=== PATIENT | male | born 1995 | race Caucasian/White ===

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

== ENCOUNTER 2021-02-03 00:03 | Emergency (ER) | payer BC ==
[~2021-02-03] VITALS: Ht 180.3 cm; Wt 63.6 kg
[~2021-02-03 00:03] MED LIST: TYLENOL W/COD1 UDTAB PO
[2021-02-03 00:08] VITALS: BP 131/90; TEMP 97.6
[2021-02-03] MEDS ORDERED: AMOXICILLIN 8751 TAB PO (01:12)
[2021-02-03 01:28] VITALS: PULSE 75
== END 2021-02-03 01:28 | disposition home or self-care (01) ==
LOC: COL.ER 00:03
DX: S00.33XA Contusion of nose, initial encounter (principal); J34.89 Other specified disorders of nose and nasal sinuses; W21.05XA Struck by basketball, initial encounter; Y93.67 Activity, basketball

== ENCOUNTER 2021-11-21 07:32 | Emergency (ER) | payer BC ==
[~2021-11-21] VITALS: Ht 182.9 cm; Wt 68.2 kg
[~2021-11-21 07:32] MED LIST changes: +AMOXICILLIN 8751 TAB PO
[2021-11-21 07:37] VITALS: TEMP 97.8
[2021-11-21 07:50] LABS: BASO # 0.1 K/mm3 (0.0-0.2); BASO % 0.6 % (0.0-2.0); EOS # 0.2 K/mm3 (0.0-0.7); EOS % 2.3 % (0.0-4.0); GRAN # 6.4 K/mm3 (1.4-6.5); GRAN % 64.3 % (42.2-75.2); HEMOGLOBIN 16.2 g/dl (13.5-18.0); LYMPH # 2.6 K/mm3 (1.2-3.4); LYMPH % 26.6 % (20.0-51.0); MEAN CELL VOLUME 83 fl (80.0-100.0); MEAN CORPUSCULAR HEMOGLOBIN 29 pg (27-31); MEAN CORPUSCULAR HGB CONC 35 g/dl (33.0-37.0); MEAN PLATELET VOLUME 10.3 fl (7.4-10.4); MONO # 0.6 K/mm3 (0.1-0.6); MONO % 5.7 % (1.7-9.3); PLATELET COUNT 403 K/mm3 (130-400); RED BLOOD COUNT 5.65 M/mm3 (4.20-5.60); REDCELL DISTRIBUTION WIDTH-CV 12.4 % (11.5-14.5)
[2021-11-21 08:13] LABS: ALBUMIN 4.5 gm/dL (3.5-5.0); C-REACTIVE PROTEIN 0.15 mg/dL (0.00-0.50); CALCIUM 10.1 mg/dL (8.4-10.2); CREATININE, serum 0.97 mg/dL (0.72-1.25); POTASSIUM 4.1 mmol/L (3.5-4.5); TOTAL PROTEIN 7.6 gm/dL (6.2-8.1)
[2021-11-21 09:06] LABS: COLLECTION METHOD CLEAN CATCH
[2021-11-21 09:15] LABS: MUCOUS Present (NOT PRESENT); SQUAMOUS EPITHELIAL None Seen /hpf (0-10); URINE BACTERIA None Seen /hpf (NONE SEEN); URINE RBC 0-2 /hpf (0-2)
[2021-11-21 09:16] LABS: PH 6 (5-8); URINE APPEARANCE Clear (CLEAR/HAZY); URINE BILIRUBIN Negative (NEGATIVE); URINE BLOOD Negative (NEGATIVE); URINE COLOR Yellow (YELLOW); URINE GLUCOSE Negative (NEGATIVE); URINE KETONE Negative (NEGATIVE); URINE LEUKOCYTE ESTERASE Negative (NEGATIVE); URINE NITRATE Negative (NEGATIVE); URINE PROTEIN(semi-quant) Negative (NEGATIVE); URINE UROBILINOGEN Negative (NEGATIVE)
[2021-11-21] MEDS ORDERED: PRILOSEC 20MG20 MG PO (11:00)
[2021-11-21 11:15] VITALS: BP 134/81; PULSE 48
== END 2021-11-21 11:28 | disposition home or self-care (01) ==
LOC: COL.ER 07:32
PROVIDERS: Family Medicine
DX: K29.70 Gastritis, unspecified, without bleeding (principal)
CPT/HCPCS: C9113; J2270; J2405; J2550; J7120; Q9967